=== PATIENT | male | born 1935 | race Caucasian/White ===

== ENCOUNTER 2017-01-02 08:20 | Emergency (ER) | payer MEDICARE, BC ==
[~2017-01-02] VITALS: Ht 177.8 cm; Wt 69.2 kg
[~2017-01-02 08:20] MED LIST: ASPI81TA82 PO; CIAL5TAB PO; CITRTAB PO; CYAN100025 PO; DIOV160T60 PO; ROSU5 PO; [UNRECOGNIZED DRUG - OTHER] PO
[2017-01-02 08:31] VITALS: BP 149/91; PULSE 59; RESP 16; TEMP 98.1; O2SAT 95
[2017-01-02] MEDS ORDERED: VITA100021 SL (10:04)
[2017-01-02] MEDS ORDERED: ASPI81CH37 CHEW (10:04)
[2017-01-02] MEDS ORDERED: CIAL5TAB PO (10:04)
[2017-01-02] MEDS ORDERED: DIOV160T6 PO (10:04)
[2017-01-02] MEDS ORDERED: HYDR500C PO (10:04)
[2017-01-02] MEDS ORDERED: OMEG1CAP53 PO (10:04)
--- NOTE | 2017-01-02 10:05 | PD ---
HPI Chief Complaint: Pain: Acute or Chronic Time Seen by Provider: 09:54 Travel History International Travel<30 days: No Contact w/Intl Traveler<30days: [place] Country Traveled to: [place] Traveled to known affect area: No History of Present Illness HPI 81-year-old male presents with right shoulder and arm pain that is been present over the past couple of days. Quality is throbbing. Severity is moderate. Pain is worse if you touch the area or if he moves his arm. He denies taking anything at home for the pain. He states that he hasn't had any trauma. He denies other concurrent complaints including chest pain, fever, swelling, shortness of breath or other concerns. Severity is moderate. He denies discussing this with his primary doctor. PFSH Past Medical History Hx Anticoagulant Therapy: Yes (BABY ASA DAILY) Cancer: Yes (PROSTATE CA) Cardiovascular Problems: Yes (HTN, CHOL) High Cholesterol: Yes Diabetes: No Diminished Hearing: No Endocrine: No Gastrointestinal Disorders: No Genitourinary: Yes (PROSTATE CA) Hepatitis: No Hypertension: Yes Immune Disorder: No Musculoskeletal: No Neurologic: No Psychiatric: No Reproductive: Yes Respiratory: No Immunizations Current: Yes Influenza Vaccination: Yes ?: Not Past Surgical History AICD: No Eye Surgery: Yes (PLASTIC SURGERY UNDER RIGHT EYE) Genitourinary Surgery: Yes (PROSTATE SURGERY/TESTICULAR BIOPSY) Joint Replacement: No Pacemaker: No Other Surgery: Yes (stent placed right knee for pvd) Social History Alcohol Use: Yes (1 drink daily) Tobacco Use: No (quit December 2014) Substance Use: No Allergies-Medications (Allergen,Severity, Reaction): Coded Allergies: Hydrochlorothiazide (Verified Allergy, Severe, joint pain,headache, 10/30/15 ) Nonsteroidal Anti-Inflammatory Agts (Verified Allergy, Severe, hypertension, 10/30/15) Reported Meds & Prescriptions Reported Meds & Active Scripts Active Reported Vitamin B-12 (Cyanocobalamin) 1,000 Mcg Subl 1,000 Mcg SL DAILY Aspirin Low Dose (Aspirin) 81 Mg Chew 81 Mg CHEW DAILY Lovaza (Pdyyb-4-Ocgk Ethyl Esters) 1 Gm Cap 4 Gm PO DAILY Diovan (Valsartan) 160 Mg Tab 160 Mg PO DAILY Hydrea (Hydroxyurea) 500 Mg Cap 500 Mg PO DAILY Review of Systems Except as stated in HPI: all other systems reviewed are Neg Physical Exam Narrative GENERAL: Well-nourished, well-developed patient. SKIN: Warm and dry. HEAD: Normocephalic and atraumatic. EYES: No injection or drainage. ENT: No nasal drainage noted. NECK: Supple, trachea midline. ttp to right trapezius without midline pain CARDIOVASCULAR: Regular rate and rhythm RESPIRATORY: Breath sounds equal bilaterally. No accessory muscle use. GASTROINTESTINAL: Abdomen soft, non-tender, nondistended. EXTREMITIES: No edema. Tender across lateral upper condyle and mid forearm as well as upper arm without shoulder involvement BACK: Nontender without obvious deformity. NEUROLOGICAL: Awake and alert. Motor and sensory grossly within normal limits. Normal speech. Data Data Last Documented VS Vital Signs Date Time Temp Pulse Resp B/P Pulse Ox O2 Delivery O2 Flow Rate FiO2 01/02/17 08:31 98.1 59 16 149/91 95 Orders Orphenadrine Inj (Norflex Inj) (01/02/17 10:15) [facility] Medical Decision Making Medical Screen Exam Complete: Yes Emergency Medical Condition: Yes Medical Record Reviewed: Yes (past history confirm) Differential Diagnosis Muscle strain, tendinitis, lateral epicondylitis, rotator cuff Narrative Course Will dose with Toradol. Lengthy discussion with patient about unlikely DVT or fracture and he agrees to no imaging here. 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 Patient with good pulses and no swelling, Patient denies any new complaints, all questions answered. Patient knows that follow up is incumbent on them and to return to the emergency room immediately if new or worsening symptoms develop. Patient given strict return precautions, vitals reviewed and are normal, agrees to further workup as an outpatient. Diagnosis Primary Impression: Right arm pain Patient Instructions: General Instructions Additional Instructions: tylenol as needed, follow with primary this week, return as needed Med/Other Pt SpecificInfo: No Change to Meds Disposition: 01 DISCHARGE HOME Condition: Stable Yahaira Daniels MD Jan 02, 2017 10:05
[2017-01-02] MEDS ORDERED: ORPHENADRINE INJ 60 MG/2 ML AMP IM ONE (10:15)
== END 2017-01-02 10:20 | disposition home or self-care (01) ==
LOC: PHED 08:20 → PHEFT 10:20
DX: M79.601 Pain in right arm (principal)
CPT/HCPCS: 96372; 99284; J2360

== ENCOUNTER 2017-01-04 09:28 | Emergency (ER) | payer MEDICARE, BC ==
[~2017-01-04] VITALS: Ht 177.8 cm; Wt 70.0 kg
[~2017-01-04 09:28] MED LIST changes: +ASPI81CH37 CHEW; -ASPI81TA82 PO; -CITRTAB PO; -CYAN100025 PO; +DIOV160T6 PO; -DIOV160T60 PO; +HYDR500C PO; +OMEG1CAP53 PO; -ROSU5 PO; +VITA100021 SL; -[UNRECOGNIZED DRUG - OTHER] PO
[2017-01-04 09:31] VITALS: BP 169/96; PULSE 72; RESP 16; TEMP 98.1; O2SAT 94
[2017-01-04] MEDS ORDERED: CYCLOBENZAPRINE HCL 10 MG TAB PO ONE (10:00)
[2017-01-04 10:36] LABS: AUTOMATED NEUTROPHIL # 4.7 TH/MM3 (1.8-7.7); BASOPHIL # 0.1 TH/MM3 (0-0.2); EOSINOPHIL # 0.1 TH/MM3 (0-0.4); EOSINOPHIL % 0.9 % (0.0-4.0); HEMATOCRIT 41.3 % (39.0-51.0); HEMO FLAGS DIFF FINAL; LYMPHOCYTE # 0.9 TH/MM3 (1.0-4.8); MEAN CELL VOLUME 111.7 FL (80.0-100.0); MONO % 8.5 % (0.0-8.0); NEUT % 74.6 % (16.0-70.0); PLATELET COUNT 427 TH/MM3 (150-450); RED CELL DISTRIBUTION WIDTH 14.4 % (11.6-17.2); WHITE BLOOD COUNT 6.3 TH/MM3 (4.0-11.0)
--- NOTE | 2017-01-04 10:40 | PD ---
HPI Chief Complaint: Musculoskeletal Complaint Time Seen by Provider: 09:43 Travel History International Travel<30 days: No Contact w/Intl Traveler<30days: No Traveled to known affect area: No History of Present Illness HPI Patient is an 81-year-old male who comes in complaining of right shoulder pain. He was here 2 days ago for the same thing. He says Tylenol was controlling his pain, but this morning when he got up from bed, he experienced a shooting pain down his arm with some numbness in his hand. He says this has improved since the event, but he was nervous, so he came in. He denies any injuries that he knows of, however he says Sunday they returned from a road trip, and he was unpacking the car. He does have a history of hypercoagulability, he takes hydroxyurea and aspirin. He denies any chest pain or shortness of breath. He denies any fever or chills. He denies any neck pain. PFSH Past Medical History Hx Anticoagulant Therapy: Yes (BABY ASA DAILY) Cancer: Yes (PROSTATE CA) Cardiovascular Problems: Yes (HTN, CHOL) High Cholesterol: Yes Diabetes: No Diminished Hearing: No Endocrine: No Gastrointestinal Disorders: No Genitourinary: Yes (PROSTATE CA) Hepatitis: No Hypertension: Yes Immune Disorder: No Musculoskeletal: No Neurologic: No Psychiatric: No Reproductive: Yes Respiratory: No Immunizations Current: Yes Past Surgical History AICD: No Eye Surgery: Yes (PLASTIC SURGERY UNDER RIGHT EYE) Genitourinary Surgery: Yes (PROSTATE SURGERY/TESTICULAR BIOPSY) Joint Replacement: No Pacemaker: No Other Surgery: Yes (stent placed right knee for pvd) Social History Alcohol Use: Yes (1 drink daily) Tobacco Use: No (quit December 2014) Substance Use: No Allergies-Medications (Allergen,Severity, Reaction): Coded Allergies: Hydrochlorothiazide (Verified Allergy, Severe, joint pain,headache, ) Nonsteroidal Anti-Inflammatory Agts (Verified Allergy, Severe, hypertension, 01/04/17) Reported Meds & Prescriptions Reported Meds & Active Scripts Active Reported Vitamin B-12 (Cyanocobalamin) 1,000 Mcg Subl 1,000 Mcg SL DAILY Aspirin Low Dose (Aspirin) 81 Mg Chew 81 Mg CHEW DAILY Cialis (Tadalafil) 5 Mg Tab 5 Mg PO DAILY Do not exceed 1 dose/day. Lovaza (Triuw-0-Yptv Ethyl Esters) 1 Gm Cap 4 Gm PO DAILY Diovan (Valsartan) 160 Mg Tab 160 Mg PO DAILY Hydrea (Hydroxyurea) 500 Mg Cap 500 Mg PO DAILY Review of Systems Except as stated in HPI: all other systems reviewed are Neg General / Constitutional: No: Fever, Chills HENT: No: Headaches, Lightheadedness Cardiovascular: No: Chest Pain or Discomfort Respiratory: No: Shortness of Breath Gastrointestinal: No: Nausea, Vomiting Musculoskeletal: Positive: Pain, No: Edema Skin: No Rash, No Change in Pigmentation Neurologic: No: Weakness, Dizziness Physical Exam Narrative GENERAL: Awake and alert, in no acute distress. SKIN: Focused skin assessment warm/dry. HEAD: Atraumatic. Normocephalic. EYES: Pupils equal and round. No scleral icterus. ENT: Mucous membranes pink and moist. NECK: Trachea midline. No JVD. CARDIOVASCULAR: Regular rate and rhythm. No murmur appreciated. RESPIRATORY: No accessory muscle use. Clear to auscultation. Breath sounds equal bilaterally. MUSCULOSKELETAL: No obvious deformities. No clubbing. No cyanosis. No edema. Tender to palpation at the base of the right shoulder blade. Tender to palpation down the right humerus. No pain to the elbow or forearm. Radial pulse intact. NEUROLOGICAL: Awake and alert. No obvious cranial nerve deficits. Motor grossly within normal limits. Normal speech. Sensation intact. PSYCHIATRIC: Appropriate mood and affect; insight and judgment normal. Data Data Last Documented VS Vital Signs Date Time Temp Pulse Resp B/P Pulse Ox O2 Delivery O2 Flow Rate FiO2 01/04/17 09:31 98.1 72 16 169/96 94 Orders Shoulder, Complete (>2vws) (01/04/17 ) Us Arm Venous Doppler (01/04/17 ) Complete Blood Count With Diff (01/04/17 09:53) Basic Metabolic Panel (Bmp) (01/04/17 09:53) Act Partial Throm Time (Ptt) (01/04/17 09:53) Prothrombin Time / Inr (Pt) (01/04/17 09:53) Iv Access Insert/Monitor (01/04/17 09:53) Cyclobenzaprine (Flexeril) (01/04/17 10:00) Acetaminophen (Tylenol) (01/04/17 11:30) Labs Laboratory Tests Test 01/04/17 10:19 White Blood Count 6.3 TH/MM3 Red Blood Count 3.70 MIL/MM3 Hemoglobin 14.1 GM/DL Hematocrit 41.3 % Mean Corpuscular Volume 111.7 FL Mean Corpuscular Hemoglobin 38.0 PG Mean Corpuscular Hemoglobin 34.0 % Concent Red Cell Distribution Width 14.4 % Platelet Count 427 TH/MM3 Mean Platelet Volume 7.4 FL Neutrophils (%) (Auto) 74.6 % Lymphocytes (%) (Auto) 15.0 % Monocytes (%) (Auto) 8.5 % Eosinophils (%) (Auto) 0.9 % Basophils (%) (Auto) 1.0 % Neutrophils # (Auto) 4.7 TH/MM3 Lymphocytes # (Auto) 0.9 TH/MM3 Monocytes # (Auto) 0.5 TH/MM3 Eosinophils # (Auto) 0.1 TH/MM3 Basophils # (Auto) 0.1 TH/MM3 CBC Comment DIFF FINAL Differential Comment Prothrombin Time 11.5 SEC Prothromb Time International 1.0 RATIO Ratio Activated Partial 26.5 SEC Thromboplast Time Sodium Level 145 MEQ/L Potassium Level 4.1 MEQ/L Chloride Level 109 MEQ/L Carbon Dioxide Level 28.6 MEQ/L Anion Gap 7 MEQ/L Blood Urea Nitrogen 24 MG/DL Creatinine 1.10 MG/DL Estimat Glomerular Filtration 64 ML/MIN Rate Random Glucose 121 MG/DL Calcium Level 9.4 MG/DL [facility] Medical Decision Making Medical Screen Exam Complete: Yes Emergency Medical Condition: Yes Medical Record Reviewed: Yes Differential Diagnosis Shoulder sprain versus radiculopathy versus DVT versus fracture versus arthritis Narrative Course Patient is a 81-year-old male who comes in complaining of right shoulder pain with numbness down his right arm. Exam shows tenderness to the right shoulder blade as well as the right humerus. X-ray of the shoulder performed shows degenerative changes. Ultrasound performed shows no evidence of blood clot. Labs show no acute abnormalities. Patient given Tylenol and Flexeril. He'll be discharged with prescription for Flexeril. Advised to continue take Tylenol as needed. Advised follow-up with his doctor and orthopedics as needed. Advised to return to the emergency department as needed for any worsening symptoms. Diagnosis Primary Impression: Right arm pain Referrals: Robert Cruz MD call for appointment Patient Instructions: Cervical Radiculopathy (ED), General Instructions, Shoulder Pain (ED) Additional Instructions: Take Tylenol and muscle relaxers as needed for pain. Stretcher arm often. Follow up with her primary care doctor. Follow-up with orthopedics. Return to the emergency department as needed for any worsening symptoms. Scripts Cyclobenzaprine (Flexeril)10 Mg Tab10 Mg PO TID #15 TAB Ref 0 Prov:Leatha Hernandez MD 01/04/17 Disposition: 01 DISCHARGE HOME Condition: Stable Leatha Hernandez MD Jan 04, 2017 10:40
[2017-01-04 10:44] LABS: POTASSIUM 4.1 MEQ/L (3.5-5.1)
[2017-01-04 10:49] LABS: APTT (PATIENT) 26.5 SEC (24.3-30.1); BICARBONATE 28.6 MEQ/L (21.0-32.0); PROTHROMBIN TIME - PATIENT 11.5 SEC (9.8-11.6)
--- NOTE | 2017-01-04 10:54 | RADHPO ---
EXAM DATE/TIME: 01/04/2017 10:05 [facility] COMPARISON: No previous studies available for comparison. INDICATIONS : Right shoulder pain with no known injury radiating down arm. MEDICAL HISTORY : Hypertension. Hypercholesterolemia. Carcinoma, prostatic. SURGICAL HISTORY : Stent in right knee for PVD. Prostate sx. ENCOUNTER: Initial ACUITY: 2 days PAIN SCORE: 5/10 LOCATION: Right shoulder FINDINGS: Mild degenerative changes are noted involving the right acromioclavicular and glenohumeral joints. T here is no acute fracture or dislocation. CONCLUSION: 1. Mild degenerative changes involving the right acromioclavicular and glenohumeral joints. 2. No acute fracture or dislocation. Paxton Lieberman MD on January 04, 2017 at 10:46 Board Certified Radiologist. This report was verified electronically.
[2017-01-04] MEDS ORDERED: ACETAMINOPHEN 325 MG TAB PO ONE (11:30)
--- NOTE | 2017-01-04 11:54 | RADHPO ---
EXAM DATE/TIME: 01/04/2017 11:03 [facility] COMPARISON: No previous studies available for comparison. INDICATIONS : Right arm pain. MEDICAL HISTORY : Hypercholesterolemia. Hypertension. Anticoagulant therapy, baby asprin. Prostate cancer. Renal disea se. Blood dyscrasias. SURGICAL HISTORY : Plastic surgery under right eye. Prostate surgery. Testicular biopsy. Stent placed in right knee for pvd. ENCOUNTER: Initial ACUITY: 4 - 6 days PAIN SCORE: 3/10 LOCATION: Right arm. FINDINGS: There is spontaneous flow documented in the brachial, basilic, cephalic, axillary, and subclavian vei ns. The vessels are compressible and augmentation response is documented. No filling defects are se en. The flow is phasic with respiration. Direction of flow in the jugular vein is caudal. CONCLUSION: No evidence of deep venous thrombosis within the right upper extremity. Paxton Lieberman MD on January 04, 2017 at 11:51 Board Certified Radiologist. This report was verified electronically.
[2017-01-04] MEDS ORDERED: CYCL1TAB29 PO (12:17)
[2017-01-04 12:29] VITALS: BP 184/83
== END 2017-01-04 12:40 | disposition home or self-care (01) ==
LOC: PHED 09:28
DX: M79.601 Pain in right arm (principal); E78.00 Pure hypercholesterolemia, unspecified; I10 Essential (primary) hypertension; Z79.01 Long term (current) use of anticoagulants; Z85.46 Personal history of malignant neoplasm of prostate
CPT/HCPCS: 73030; 80048; 85025; 85610; 85730; 93971